=== PATIENT | female | born 1980 | race African-American/Black ===

== ENCOUNTER 2016-10-16 12:26 | Emergency (ER) | payer OTHER ==
[~2016-10-16] VITALS: Ht 154.9 cm; Wt 178.3 kg
[2016-10-16 12:30] VITALS: BP 126/73
[2016-10-16] MEDS ORDERED: ACETAMINOPHEN 325 MG TABLET PO ONE (14:30)
[2016-10-16] MEDS ORDERED: CEPHALEXIN MONOHYDRATE 500 MG CAPSULE PO ONE ×2 (14:30→14:45)
[2016-10-16] MEDS ORDERED: ACETAMINOPHEN ES 500 MG TABLET ONE (14:45)
[2016-10-16] MEDS ORDERED: BACI/NEOM/POLY B OINT PKT 1 UDPKT PACKET ONE (15:43)
== END 2016-10-16 15:51 | disposition home or self-care (01) ==
LOC: ER 12:28
DX: S83.91XA Sprain of unspecified site of right knee, initial encounter (principal); L03.115 Cellulitis of right lower limb; X58.XXXA Exposure to other specified factors, initial encounter; Y93.E8 Activity, other personal hygiene; Y92.89 Other specified places as the place of occurrence of the external cause; Y99.9 Unspecified external cause status
CPT/HCPCS: 73560-TC; A4606; Z7610